=== PATIENT | male | born 1950 | race Caucasian/White ===

== ENCOUNTER 2018-10-09 15:38 | Emergency (ER) | payer MEDICARE ==
[2018-10-09] MEDS ORDERED: IBUPROFEN 800 MG TABLET PO ONE (16:20)
--- NOTE | 2018-10-09 17:15 | ER Document Report ---
HPI - HPI Patient complains to provider of: Left ankle pain Time Seen by Provider: 10/09/18 16:19 Pain Level: 2 Context: Patient is a 60-year-old male presents to the emergency department chief complaint left ankle pain. Patient states he was golfing this afternoon when he is unsure if he inverted or everted his left ankle. States he was trying to get a ball out of a low Plan. Patient denies falling on his knee, hip, neck, back. Patient is complaining of generalized pain in the lateral malleolus and dorsal aspect of his left foot. Patient states he takes oxycodone on a daily basis for chronic back pain. He is refusing any pain management in the emergency room. - MUSCULOSKELETAL Musculoskeletal: REPORTS: Extremity pain Past Medical History - General Information source: Patient - Social History Smoking Status: Unknown if Ever Smoked Family History: Reviewed & Not Pertinent Patient has suicidal ideation: No Patient has homicidal ideation: No - Past Medical History Cardiac Medical History: Reports: Hx Hypertension Denies: Hx Coronary Artery Disease, Hx Heart Attack Pulmonary Medical History: Denies: Hx Asthma, Hx Bronchitis, Hx COPD, Hx Pneumonia Neurological Medical History: Denies: Hx Cerebrovascular Accident, Hx Seizures Renal/ Medical History: Denies: Hx Peritoneal Dialysis Musculoskeletal Medical History: Reports Hx Arthritis - neck - Immunizations Hx Diphtheria, Pertussis, Tetanus Vaccination: Yes Hx Pneumococcal Vaccination: 06/18/14 Vertical Provider Document - CONSTITUTIONAL Agree With Documented VS: Yes Notes: GENERAL: Alert, interacts well. No acute distress. HEAD: Normocephalic, atraumatic. EYES: Pupils equal, round, and reactive to light. Extraocular movements intact. ENT: Oral mucosa moist, tongue midline. NECK: Full range of motion. Supple. Trachea midline. LUNGS: Clear to auscultation bilaterally, no wheezes, rales, or rhonchi. No respiratory distress. HEART: Regular rate and rhythm. No murmur ABDOMEN: Soft, non-tender. Non-distended. Bowel sounds present in all 4 quadrants. EXTREMITIES: Moves all 4 extremities spontaneously. normal radial and dorsalis pedis pulses bilaterally. No cyanosis. No pain left hip, left knee, left crarillo. Pain upon palpation left lateral malleolus and dorsal aspect of left foot. Minor swelling noted, no erythema or ecchymosis noted. Capillary refill less than 2 seconds distally left lower extremity. BACK: no cervical, thoracic, lumbar midline tenderness. No saddle anesthesia, normal distal neurovascular exam. NEUROLOGICAL: Alert and oriented x3. Normal speech. cranial nerves II through XII grossly intact PSYCH: Normal affect, normal mood. SKIN: Warm, dry, normal turgor. - INFECTION CONTROL TRAVEL OUTSIDE OF THE [place] IN LAST 30 DAYS: No COUNTRY TRAVELED TO/FROM: [facility] Course - Re-evaluation Re-evalutation: Patient states he typically takes oxycodones at home. States he does not have a local city driver so he does not wish for us to give him any of the emergency room. Patient is denying Tylenol or Motrin at this time. 10/09/18 19:08 X-ray shows a distal nondisplaced fibular fracture. Upon reassessment of the patient he is now stating that he has proximal pain along his fibula. Patient's denying any carrillo pain. X-rays tib-fib ordered, only revealing distal fibula fracture. Posterior short leg placed, crutch instructions given. Discussed following up with orthopedics. Patient stable for discharge. - Vital Signs Vital signs: Temp Pulse Resp BP Pulse Ox 98.1 F 58 L 18 103/71 98 10/09/18 15:48 10/09/18 15:48 10/09/18 15:48 10/09/18 15:48 10/09/18 15:48 Discharge - Discharge Clinical Impression: Fracture of distal fibula Qualifiers: Encounter type: initial encounter Fracture type: closed Fracture morphology: unspecified fracture morphology Laterality: left Qualified Code(s): S82.832A - Other fracture of upper and lower end of left fibula, initial encounter for closed fracture Condition: Stable Disposition: HOME, SELF-CARE Instructions: Ice & Elevation ([facility]), Use of Crutches ([facility]), Fracture of Distal Fibula ([facility]) Additional Instructions: As we discussed you have been seen and treated in the emergency department for a fracture of your left lower extremity. Please keep splint in place until you follow-up with orthopedics. Orthopedic phone number will be provided in this packet. Please take at home pain medication for generalized pain. Please return to the emergency room should you have any other concerning symptoms. Referrals: LATA JOHNSTON MD [Primary Care Provider] - Follow up as needed ELIJAH SANTIAGO MD [ACTIVE STAFF] - Follow up as needed
--- NOTE | 2018-10-09 17:50 | RADIOLOGY REPORT (SQ) ---
EXAM DESCRIPTION: ANKLE LEFT COMPLETE COMPLETED DATE/TIME: 10/09/2018 5:13 pm REASON FOR STUDY: pain COMPARISON: None. EXAM PARAMETERS: NUMBER OF VIEWS: Three views. TECHNIQUE: AP, lateral and oblique radiographic images acquired of the left ankle. LIMITATIONS: None. FINDINGS: MINERALIZATION: Normal. BONES: No dislocation. Nondisplaced oblique fracture in the distal left fibular duct metaphysis at the syndesmotic level. Ankle mortise is intact. Small old medial malleolar avulsion. JOINTS: Trace effusion. SOFT TISSUES: Lateral soft tissue swelling. No radiopaque foreign body. OTHER: No other significant finding. IMPRESSION: Nondisplaced oblique fracture in the distal left fibular duct metaphysis at the syndesmo tic level. Ankle mortise is intact. Small old medial malleolar avulsion. TECHNICAL DOCUMENTATION: JOB ID: [id number] [place]-72 2010 [employer]- All Rights Reserved Reading location - IP/workstation name: [email or web address]
--- NOTE | 2018-10-09 17:53 | RADIOLOGY REPORT (SQ) ---
EXAM DESCRIPTION: FOOT LEFT COMPLETE COMPLETED DATE/TIME: 10/09/2018 5:13 pm REASON FOR STUDY: pain COMPARISON: None. EXAM PARAMETERS: NUMBER OF VIEWS: Three views. TECHNIQUE: AP, lateral and oblique radiographic images acquired of the left foot. LIMITATIONS: None. FINDINGS: MINERALIZATION: Normal. BONES: No dislocation. Nondisplaced oblique fracture in the distal left fibular duct metaphysis at t he syndesmotic level. Ankle mortise is intact. Small old medial malleolar avulsion. . JOINTS: Trace effusion. SOFT TISSUES: No significant soft tissue swelling in the foot. No radiopaque foreign body. OTHER: No other significant finding. IMPRESSION: Nondisplaced oblique fracture in the distal left fibular duct metaphysis at the syndesmo tic level. No fracture in the foot. TECHNICAL DOCUMENTATION: JOB ID: [id number] [place]-72 2010 [employer]- All Rights Reserved Reading location - IP/workstation name: [email or web address]
--- NOTE | 2018-10-09 18:59 | RADIOLOGY REPORT (SQ) ---
EXAM DESCRIPTION: TIBIA FIBULA LEFT COMPLETED DATE/TIME: 10/09/2018 6:40 pm REASON FOR STUDY: pain proximal fibula COMPARISON: None. NUMBER OF VIEWS: Two views. TECHNIQUE: Two radiographic images acquired of the left tibia and fibula to include the knee and ank le in at least one projection. LIMITATIONS: None. FINDINGS: MINERALIZATION: Normal. BONES: NONDISPLACED DISTAL FIBULAR metaphyseal fracture. No dislocation. No worrisome bone lesions. SOFT TISSUES: Distal lateral soft tissue swelling. OTHER: No other significant finding. IMPRESSION: NONDISPLACED DISTAL FIBULAR metaphyseal fracture. No dislocation. TECHNICAL DOCUMENTATION: JOB ID: [id number] [place]-72 2010 [employer]- All Rights Reserved Reading location - IP/workstation name: [email or web address]
[2018-10-09 19:55] VITALS: BP 156/77
== END 2018-10-09 19:54 | disposition home or self-care (01) ==
LOC: ER 15:38
DX: S82.832A Other fracture of upper and lower end of left fibula, initial encounter for closed fracture (principal); M25.572 Pain in left ankle and joints of left foot; X50.0XXA Overexertion from strenuous movement or load, initial encounter; Y93.53 Activity, golf; I10 Essential (primary) hypertension; G89.29 Other chronic pain; M54.5 Low back pain; Z79.891 Long term (current) use of opiate analgesic
CPT/HCPCS: 99283